=== PATIENT | female | born 1995 | race Caucasian/White ===

== ENCOUNTER 2016-06-28 11:42 | Outpatient (CLI) | payer OTHER ==
[~2016-06-28] VITALS: Ht 172.7 cm; Wt 113.2 kg
[2016-06-28 12:12] VITALS: Ht 172.7 cm; Wt 113.2 kg
--- NOTE | 2016-06-28 12:59 | RADRPT ---
PROCEDURE: US OB. CLINICAL INDICATION: Decreased motion. TECHNIQUE: Multiple sonographic images of the uterus were obtained. The images were revi ewed on a PACS workstation. COMPARISON: No prior studies are available for comparison. FINDINGS: There is a single live intrauterine gestation. heart rate is 141 beats per minute. Measurements were made in order to determine age. The results are as follows: BPD = 9.11 cm. HC = 33.14 cm. AC = 33.76 cm. FL = 7.34 cm. Estimated weight is 3245 +/- 487 grams. LMP growth percentile is 63 %. Menstrual age by ultrasound dates is 37 weeks 4 days. The estimated date of delivery is 07/15/2016. Position is cephalic and placenta is posterior grade II. There is no evidence for an abruption or pl acenta previa. IMPRESSION: 1. Single live intrauterine gestation of 37 weeks 4 days menstrual age by ultrasound dates. 2. The estimated date of delivery is 07/15/2016. RPTAT: QQ .Dg Olmos MD, Date Time Electronically viewed and signed by .Dg Olmos MD, on 06/28/2016 12:59 .R/
--- NOTE | 2016-06-28 13:56 | RADRPT ---
PROCEDURE: US biophysical profile. CLINICAL INDICATION: Decreased motion. TECHNIQUE: Multiple sonographic images of the uterus were obtained. The images were revi ewed on a PACS workstation. COMPARISON: No prior studies are available for comparison. FINDINGS: There is a single live intrauterine gestation. heart rate is 146 beats per minute. The position is cephalic. The placenta is posterior grade II with no abruption or previa. The MIKE is 14.4 cm. (Normal = 5-20 cm.) Breathing Movement: 2 Gross Body Movement: 2 Tone: 2 Qualitative Amniotic Fluid Volume: 2 TOTAL: 8 IMPRESSION: 1. The biophysical score is 8/8. RPTAT: QQ .Dg Olmos MD, MD Date Time Electronically viewed and signed by .Dg Olmos MD, on 06/28/2016 13:56 .R/
--- NOTE | 2016-06-28 15:55 | CONS ---
Date/Time of Note Date/Time of Note DATE: 06/28/16 TIME: 15:48 Consultation Date/Type/Reason Admit Date/Time June 28, 2016 OB triage consult Reason for Consultation This patient is a 21 years old 2 para 0 1 with EDC of July which makes her 37 weeks and 3 days She came to OB triage area complaining of low movement since last night On examination she is a well-developed well-nourished lady closed with her Her ear nose throat appear to be normal neck normal no neck vein distention no thyromegaly no lymph node enlargement anywhere in the body her abdomen was soft on monitoring who did not be any regular contractions Vital signs were normal blood pressure 111/57 pulse rate 90 respiration 18 temperature 97.7 Her urine test was normal On ultrasound study there was a single live intrauterine gestation heart tones 141 estimated weight was 3245 g 487 g by ultrasound she was 37 weeks and 4 days which was compatible with a EDC based on the last menstrual period. On evaluation of the feet her biophysical profile was 8/8 MIKE was 14.4 cm. Hx of Present Illness Disposition. With these normal findings patient was reassured of her condition and she was instructed to go home and return to the clinic in case of bleeding evidence of labor or any rupture membrane she understands all of those and will follow her care in her physician's office Constitutional: No chills, No diaphoresis, No disoriented, No febrile, No improved, No no complaints, No other, No poor po, No requiring IVF, No requiring O2 Eyes: No discharge, No no complaints, No other, No pain, No redness, No visual change ENT: No bleeding, No congestion, No discharge, No dysphagia, No no complaints, No other, No pain, No sore throat Respiratory: No cough, No no complaints, No other, No pain, No pleuritic pain, No shortness of breath, No sputum, No wheezing Cardiovascular: No chest pain, No edema, No lightheadedness, No no complaints, No orthopenea, No other, No palpitations, No paroxysmal nocturnal dyspnea Gastrointestinal: No blood, No constipation, No decreased appetite, No diarrhea , No flatus, No nausea, No no complaints, No other, No pain, No passing stool, No vomiting Genitourinary: No bleeding, No discharge, No dysuria, No flank pain, No hematuria, No no complaints, No other Musculoskeletal: No back pain, No bone/joint pain, No neck pain, No no complaints, No other, No restricted range of motion, No swelling Skin: No bruising, No erythema, No laceration, No no complaints, No other, No pruritis, No rash, No skin lesions Neurologic: No confusion, No dizziness, No focal-weakness, No headache, No no complaints, No other, No seizure, No syncope Endocrine: No dry skin, No no complaints, No other, No polydypsia, No polyuria , No temp intolerance Social History Smoking Status: Never smoker PARI SHAH MD Jun 28, 2016 15:55
== END 2016-06-28 14:30 | disposition home or self-care (01) ==
LOC: OBT 11:42 → L-D 11:42 → OBT 14:30
PROVIDERS: ATTEND Obstetrics & Gynecology
DX: O36.8130 Decreased fetal movements, third trimester, not applicable or unspecified (principal); Z3A.37 37 weeks gestation of pregnancy
CPT/HCPCS: 76815; 76818; Z7500; G0463

== ENCOUNTER 2016-07-23 09:33 | Inpatient (IN) | payer OTHER ==
[~2016-07-23] VITALS: Ht 172.7 cm; Wt 116.7 kg
[2016-07-23 09:54] VITALS: BP 107/55; PULSE 78; RESP 16; Ht 172.7 cm; Wt 116.7 kg
--- NOTE | 2016-07-23 10:30 | RADRPT ---
PROCEDURE: Obstetrical ultrasound. CLINICAL INDICATION: , evaluation. Pelvic pain. Post dates TECHNIQUE: Transabdominal sonographic images of the pelvis are obtained. COMPARISON: 06/28/2016 FINDINGS: Single intrauterine gestation. There is a cephalic presentation. Measurements were made in order to determine age. The results are as follows: BPD = 9.63 cm HC = 34.03 cm AC = 37.35 cm FL = 7.54 cm Heart rate = 142 beats per minute The placenta is fundal. There is no evidence for an abruption or placenta previa. Ovaries are not visualized. IMPRESSION: Single intrauterine gestation of approximately 39 weeks 4 days by ultrasound criteria. [place] estimated weight = 4031 g; 69 percentile for gestational age of 41 weeks 0 days. RPTAT: AADD .Hernán Garay MD, Date Time Electronically viewed and signed by .Hernán Garay MD, MD on 07/23/2016 10:30 .B/
--- NOTE | 2016-07-23 10:30 | RADRPT ---
PROCEDURE: OB ultrasound for biophysical profile CLINICAL INDICATION: Biophysical profile. . TECHNIQUE: Multiple sonographic images of the pelvis were obtained. Transabdominal view of the gr avid uterus are available for review. The images were reviewed on a PACS workstation. COMPARISON: 06/28/2016 FINDINGS: Single intrauterine gestation. Presentation: Cephalic. Partially visualized placenta: Fundal breathing movement = 2/2 tone = 2/2 motion = 2/2 MIKE = 2/2 MIKE = 15.8 cm heart rate: 144 beats per minute IMPRESSION: Single intrauterine gestation. Biophysical profile 11/13 RPTAT: AADD .Hernán Garay MD, MD Date Time Electronically viewed and signed by .Hernán Garay MD, on 07/23/2016 10:30 .B/
--- NOTE | 2016-07-23 11:00 | TRIAGE ---
OB Triage Datetime Report Generated by CPN: 07/23/2016 10:59 Datetime: 07/23/2016 10:43 Vaginal Exam Dilatation (cms): 0.0 Exam By: [facility] Datetime: 07/23/2016 10:10 Pattern: Normal: <= 5 Contractions in 10 Minutes Resting Tone [place]: Relaxed Contraction Comments: NO UC Heart Rate FHR Baseline Rate: 135 Monitor Mode: External US Variability: Moderate 6-25 bpm Accelerations: 15X15 Decelerations: None Category: Category I Pain Presence: None/Denies Pain Type: N/A Datetime: 07/23/2016 09:53 Assessment Type: Triage Maternal Assessment Level of Consciousness: Fully Conscious DTR's/Clonus: DTRs 2+; No Clonus Headache: Denies Blurred Vision: No Respiratory Effort: Unlabored; Regular Rhythm; Equal Expansion Breath Sounds, Left: Clear and Equal Breath Sounds, Right: Clear and Equal Nausea/Vomiting: Denies RUQ Epigastric Pain: Denies Lower Extremities Edema: None Degree: None Upper Extremities Edema: None Degree: None Facial Edema: None Fall Risk Assessment History of Falling: (0) No Secondary Diagnosis: (0) No Ambulatory Aid: (0) Bedrest/Nurse Assist IV Therapy: (0) No Gait: (0) Normal/Bedrest/Immobile Mental Status: (0) Oriented to Own Ability Fall Score: 0 Fall Risk Score Definition: No Risk: No action required Datetime: 07/23/2016 09:51 Time of Arrival: 07/23/2016 09:29 EGA: 41.0 Arrived By: Ambulatory Arrived From: Home Chief Complaint: PT. came to hospital with referral form for bpp and efw due to postdate Movement: Present Contractions: Denies/Absent Rupture of Membranes: Denies Vaginal Bleeding: None Vaginal Discharge: Denies Recent Sexual Intercouse: Denies Abdominal Trauma: Not Applicable Patient Complaints: None Time Provider Notified: 07/23/2016 10:48 Provider Notified: KARIE Initial Plan: u/s for bpp, efw Datetime: 06/28/2016 14:24 Stage of : OB Triage Datetime: 06/28/2016 14:19 Labor Evaluation Frequency: OCCAS Monitor Mode: External Resting Tone [place]: Relaxed Heart Rate FHR Baseline Rate: 125 Monitor Mode: External US Variability: Moderate 6-25 bpm Accelerations: 10X10 Decelerations: None Category: Category I Pain Assessment Pain Scale: 0 Pain Presence: None/Denies Pain Type: N/A Pain Goal: 3 Pain Relief Measures: Comfort Measures Datetime: 06/28/2016 13:13 Labor Evaluation Frequency: IRREG Monitor Mode: External Quality: Mild Resting Tone [place]: Relaxed Heart Rate FHR Baseline Rate: 130 Monitor Mode: External US Variability: Moderate 6-25 bpm Decelerations: None Category: Category I Pain Assessment Pain Scale: 0 Pain Presence: None/Denies Pain Type: N/A Pain Goal: 3 Pain Relief Measures: Comfort Measures Datetime: 06/28/2016 12:22 Stage of : OB Triage Datetime: 06/28/2016 12:09 Stage of : OB Triage Assessment Type: Triage EGA: 37.3 Maternal Assessment Level of Consciousness: Fully Conscious DTR's/Clonus: DTRs 2+; No Clonus Headache: Denies Blurred Vision: No Respiratory Effort: Unlabored; Regular Rhythm; Equal Expansion Breath Sounds, Left: Clear and Equal Breath Sounds, Right: Clear and Equal Nausea/Vomiting: Denies RUQ Epigastric Pain: Denies Lower Extremities Edema: None Degree: None Upper Extremities Edema: None Degree: None Facial Edema: None Temperature Route: Axillary Fall Risk Assessment History of Falling: (0) No Secondary Diagnosis: (0) No Ambulatory Aid: (0) Bedrest/Nurse Assist IV Therapy: (0) No Gait: (0) Normal/Bedrest/Immobile Mental Status: (0) Oriented to Own Ability Fall Score: 0 Fall Risk Score Definition: No Risk: No action required Labor Evaluation Frequency: 0 Monitor Mode: External Pattern: Normal: <= 5 Contractions in 10 Minutes Resting Tone [place]: Relaxed Heart Rate FHR Baseline Rate: 145 Monitor Mode: External US Variability: Moderate 6-25 bpm Decelerations: None Category: Category II Pain Assessment Pain Scale: 0 Pain Presence: None/Denies Pain Type: N/A Datetime: 06/28/2016 12:08 Time of Arrival: 06/28/2016 11:40 Arrived By: Ambulatory Arrived From: Home Chief Complaint: DECREASED FM, DENIES BLEEDING, LEAKING OR UC'S Movement: Decreased Contractions: Denies/Absent Rupture of Membranes: Denies Vaginal Bleeding: None Vaginal Discharge: Denies Recent Sexual Intercouse: Yes Abdominal Trauma: Not Applicable Patient Complaints: None Time Provider Notified: 06/28/2016 12:22 Provider Notified: KARIE Initial Plan: MONITOR, BPP/MIKE, EFW
[2016-07-23] MEDS ORDERED: PRENAT PO (11:50)
[2016-07-23 11:59] LABS: ADD SCAN DIFF NO
[2016-07-23] MEDS ORDERED: CARBOPROST 250 MCG INJ IM PRN (12:00)
[2016-07-23] MEDS ORDERED: LACTATED RINGER'S 1,000 ML IV PRN (12:00)
[2016-07-23] MEDS ORDERED: ACETAMINOPHEN/CODEINE #3 TAB PO PRN (12:00)
[2016-07-23] MEDS ORDERED: OXYTOCIN 30 UNITS/LR 500 ML IV SCH ×2 (12:00)
[2016-07-23] MEDS ORDERED: IBUPROFEN 600 MG TAB PO PRN (12:00)
[2016-07-23] MEDS ORDERED: DINOPROSTONE 10 MG VAG SUPP VAG ONE (12:00)
[2016-07-23] MEDS ORDERED: MISOPROSTOL 200 MCG TAB PR PRN (12:00)
[2016-07-23] MEDS ORDERED: OXYTOCIN 30 UNITS/LR 500 ML IV PRN (12:00)
[2016-07-23] MEDS ORDERED: METHYLERGONOVINE 0.2 MG INJ IM PRN (12:00)
[2016-07-23] MEDS ORDERED: BUTORPHANOL 2 MG INJ IV PRN (12:00)
[2016-07-23] MEDS ORDERED: LIDOCAINE 1% (MPF) 30 ML INJ INJ PRN (12:00)
[2016-07-23 12:04] LABS: BASOPHILS % 0.4 % (0.0-2.0); EOSINOPHILS # 0.1 10^3/ul (0.0-0.5); EOSINOPHILS % 1.2 % (0.0-7.0); HEMATOCRIT 33.7 % (37.0-47.0); HEMOGLOBIN 10.7 g/dl (12.0-16.0); LYMPHOCYTES # 2.4 10^3/ul (0.8-2.9); LYMPHOCYTES % 25.2 % (18.0-55.0); MEAN CORPUSCULAR HGB CONC 31.8 g/dl (32.0-37.0); MEAN CORPUSCULAR VOLUME 81.8 fl (72.0-104.0); MEAN PLATELET VOLUME 9.9 fl (7.4-10.4); MONOCYTE # 0.7 10^3/ul (0.3-0.9); MONOCYTES % 7.6 % (0.0-13.0); NEUTROPHIL # 6.2 10^3/ul (1.6-7.5); PLATELET COUNT 297 10^3/UL (140-415); RED BLOOD COUNT 4.12 10^6/ul (4.20-5.40); RED CELL DISTRIBUTION WIDTH 14.6 % (11.5-14.5); WHITE BLOOD COUNT 9.5 10^3/ul (4.8-10.8)
[2016-07-23] MEDS: LACTATED RINGER'S 1,000 ML IV SCH ×2 (12:10→17:54)
[2016-07-23 12:13] LABS: INR 1.17; PT RATIO 1.2
[2016-07-24] VITALS (9 sets, daily range): BP systolic 100–125; BP diastolic 54–70; PULSE 51–80; RESP 17–20
[2016-07-24] MEDS ORDERED: DINOPROSTONE 10 MG VAG SUPP VAG ONE (00:30)
[2016-07-24] MEDS: LACTATED RINGER'S 1,000 ML IV SCH ×2 (03:25→12:02)
[2016-07-24] MEDS ORDERED: MULTIVIT/MIN/FOLATE/IRON/PREN TAB PO SCH (09:00)
[2016-07-24] MEDS ORDERED: ONDANSETRON 4 MG INJ IV ONE (15:00)
[2016-07-24] MEDS ORDERED: LACTATED RINGER'S 1,000 ML IV ONE (15:00)
[2016-07-24] MEDS ORDERED: CITRIC ACID/NA CITRATE 30 ML CUP PO ONE (15:00)
[2016-07-24] MEDS ORDERED: OXYTOCIN 30 UNITS/LR 500 ML IV SCH (15:30)
[2016-07-24] MEDS ORDERED: CEFAZOLIN 2 GM/50 ML (PMX) 50 ML IV SCH (15:30)
[2016-07-24] MEDS ORDERED: OXYTOCIN 30 UNITS/LR 500 ML IV PRN ×2 (15:30→18:30)
[2016-07-24] MEDS ORDERED: METHYLERGONOVINE 0.2 MG INJ IM PRN ×2 (15:30→18:30)
[2016-07-24] MEDS ORDERED: CARBOPROST 250 MCG INJ IM PRN ×2 (15:30→18:30)
[2016-07-24] MEDS ORDERED: MISOPROSTOL 200 MCG TAB PR PRN ×2 (15:30→18:30)
[2016-07-24] MEDS ORDERED: METOCLOPRAMIDE 10 MG INJ ONE (15:35)
[2016-07-24] MEDS ORDERED: FENTAnyl 50 MCG/ML VIAL ONE (15:35)
[2016-07-24] MEDS ORDERED: morphine SULFATE/PF (10 MG/10 ML) INJ ONE (15:35)
[2016-07-24] MEDS ORDERED: EPHEDrine SULFATE 50 MG/5 ML SYG ONE (15:41)
--- NOTE | 2016-07-24 15:43 | HP ---
Date/Time of Note Date/Time of Note DATE: 07/24/16 TIME: 15:29 OB - History Hx of Present Free Text/Dictation 21 years old female 2 para 0 SAB 1 EDC of July 16, 2016 admitted to [facility] at 41 weeks gestation for induction of labor on admission pelvic examination cervix, closed 30% effacement, vertex at - 2 station two Cervidil insertion with 12 hours apart was placed in the vagina during the last 24 hours no cervical ahumada noted patient declined third Cervidil insertion requested delivery ,pros and cons risks and complication of the discussed with the patient and fully explained but patient would like to proceed with delivery. Estimated Due Date: Jul 16, 2016 : 2 Para: 0 Spontaneous : 1 Care: Good Care Ultrasounds: Normal mid trimester US Obstetrical Complications: None Medical Complications: None Past Family/Social History * Past Medical, Surgical, Family and Obstetric Histories reviewed from chart. Rubella: immune RPR/VDRL: Negative GBS Status: Negative HBsAG: Negative OB Admission Exam Vital Signs Vital Signs Vital Signs Date Time Temp Pulse Resp B/P Pulse Ox O2 Delivery O2 Flow Rate FiO2 07/23/16 09:54 97.5 78 16 107/55 Physical Exam HEENT: WNL Heart: Rhythm Normal Extremities: Normal Reflexes: Normal Cervical Dilatation: None Effacement: 25% Station: -2 Heart Rate: 130's Varibility: Minimum Contractions on Admission: >10 Minutes Apart Intensity: Mild Last 72 hours Lab Results CBC & BMP 07/23/16 11:40 OB Assessment/Plan Reason for admission: induction of labor Plan: Other (Failed induction patient declined further trial of labor requesting delivery) ARIN TIWARI MD Jul 24, 2016 15:41
[2016-07-24] MEDS ORDERED: PHENYLephrine (100 MCG/ML) 5ML SYG ONE (15:50)
[2016-07-24] MEDS ORDERED: DIPHENHYDRAMINE 50 MG INJ IV PRN (16:00)
[2016-07-24] MEDS ORDERED: ONDANSETRON 4 MG INJ IV PRN (16:00)
[2016-07-24] MEDS ORDERED: HYDROmorphONE 1 MG/ML SYG IV PRN ×2 (16:00)
[2016-07-24] MEDS ORDERED: NALOXONE (0.4 MG/ML) INJ IV PRN (16:00)
[2016-07-24] MEDS ORDERED: PROCHLORPERAZINE 10 MG INJ IV PRN (16:00)
[2016-07-24] MEDS ORDERED: OXYTOCIN 30 UNITS/LR 500 ML IV ONE (16:17)
--- NOTE | 2016-07-24 17:25 | OPR ---
DATE OF OPERATION: 07/24/2016 PREOPERATIVE DIAGNOSIS: Intrauterine at 41 weeks' gestation, failed induction. The patie nt declined further trial of labor with continuation of induction, requesting delivery. POSTOPERATIVE DIAGNOSIS: Intrauterine at 41 weeks' gestation, failed induction. The dayana ent declined further trial of labor with continuation of induction, requesting delivery. PROCEDURE PERFORMED: Primary transverse low cervical section. SURGEON: Arin Tiwari MD SWISS TYPE SCREW MACHINE OPERATOR: Jessica Sears MD ANESTHESIA: Spinal. ANESTHESIOLOGIST: Alyssa Dill MD FINDINGS: Live baby girl with 8 and 9. Baby weighed 4300 grams. DETAILS OF THE PROCEDURE: Under satisfactory spinal anesthesia, the patient was prepped and draped and placed in supine position, tilted to the left. Pfannenstiel incision was made, carried through the subcutaneous tissue. Bleeders brought under control with electrocautery. Fascia incised to the length of the incision. Rectus muscle divided in midline. Peritoneum exposed, entered through a t ransverse incision. Exploration of abdomen: Gravid uterus at term, normal-appearing tubes and ovar ies. Bladder flap was developed. Transverse incision was made in the lower segment of the uterus. Amniotic sac ruptured. Meconium- stained thick pea soup color noted. Nasal oropharyngeal suction was performed and baby immediately handed to the team for immediate attention. The patient received 20 units of Pitocin. Placenta delivered manually intact. Uterine cavity cleaned with wet sponge and drainage established. Uterus closed in 2 layers using Monocryl #1 in continuous fashion . Peritoneal cavity irrigated with sterile water. Sponge, needle and instrument reported to be correc t. Abdominal peritoneum closed with 2-0 chromic catgut continuously. Rectus muscle approximated wi th 3 interrupted 2-0 chromic catgut. Fascia closed with #1 PDS in a continuous fashion. Subcutaneo us tissue approximated with 2-0 chromic catgut. The skin closed with huan. Estimated blood loss 600 mL. Urine bag contained 250 mL of concentrated urine. The patient tolerated the procedure wel l, transferred to recovery room in a good condition. Dictated By: ARIN TIWARI MD HF/NTS Conf#: [id number] DID#: [id number]
[2016-07-24] MEDS: KETOROLAC 30 MG INJ IV PRN (18:23)
[2016-07-24] MEDS ORDERED: OXYCODONE/ACETAMINOPHEN (5/325) TAB PO PRN ×2 (18:30)
[2016-07-24] MEDS ORDERED: ACETAMINOPHEN/CODEINE #3 TAB PO PRN ×2 (18:30)
[2016-07-24] MEDS ORDERED: LANOLIN 7 GM TUBE TOP PRN (18:30)
[2016-07-24] MEDS ORDERED: CEFAZOLIN 1 GM/50 ML (PMX) 50 ML IVPB SCH (18:30)
[2016-07-24] MEDS: OXYTOCIN 30 UNITS/LR 500 ML IV SCH (20:55)
[2016-07-24] MEDS: SENNA/DOCUSATE NA (8.6MG/50MG) TAB PO SCH (20:56)
[2016-07-25] MEDS ORDERED: CEFAZOLIN 1 GM/50 ML (PMX) 50 ML IVPB SCH
[2016-07-25] MEDS: LACTATED RINGER'S 1,000 ML IV SCH ×3 (01:48→18:00)
[2016-07-25] MEDS: OXYTOCIN 30 UNITS/LR 500 ML IV SCH ×7 (01:48→19:45)
[2016-07-25 04:00] VITALS: BP 107/53; PULSE 84; RESP 20
[2016-07-25 08:00] VITALS: BP 96/58; PULSE 78; RESP 20
[2016-07-25] MEDS: SENNA/DOCUSATE NA (8.6MG/50MG) TAB PO SCH ×2 (08:59→20:55)
[2016-07-25 10:13] LABS: ADD SCAN DIFF NO
[2016-07-25 10:25] LABS: BASOPHILS % 0.2 % (0.0-2.0); EOSINOPHILS # 0.1 10^3/ul (0.0-0.5); EOSINOPHILS % 0.6 % (0.0-7.0); HEMATOCRIT 31.5 % (37.0-47.0); HEMOGLOBIN 9.9 g/dl (12.0-16.0); LYMPHOCYTES % 18.3 % (18.0-55.0); MEAN CORPUSCULAR HEMOGLOBIN 25.7 pg (29.0-33.0); MEAN CORPUSCULAR HGB CONC 31.4 g/dl (32.0-37.0); MEAN CORPUSCULAR VOLUME 81.8 fl (72.0-104.0); MONOCYTE # 0.9 10^3/ul (0.3-0.9); MONOCYTES % 8.2 % (0.0-13.0); NEUTROPHIL # 7.8 10^3/ul (1.6-7.5); NEUTROPHILS % 72.2 % (30.0-74.0); PLATELET COUNT 257 10^3/UL (140-415); RED BLOOD COUNT 3.85 10^6/ul (4.20-5.40); RED CELL DISTRIBUTION WIDTH 14.6 % (11.5-14.5); WHITE BLOOD COUNT 10.8 10^3/ul (4.8-10.8)
--- NOTE | 2016-07-25 10:29 | PN ---
Date/Time of Note Date/Time of Note DATE: 07/25/16 TIME: 10:28 OB Subjective Subjective Subjective Post day Afebrile abdomen soft lochia normal incision dry bowel sounds. Ambulation recommended extremity normal ARIN TIWARI MD Jul 25, 2016 10:29
[2016-07-25] MEDS: KETOROLAC 30 MG INJ IV PRN (14:30)
[2016-07-25 16:00] VITALS: BP 110/54; RESP 18
[2016-07-25] MEDS: IBUPROFEN 600 MG TAB PO SCH ×2 (17:59→23:31)
[2016-07-25 20:00] VITALS: BP 102/68; PULSE 85; RESP 18
[2016-07-25 23:30] VITALS: BP 93/53; PULSE 86; RESP 17
[2016-07-26 03:45] VITALS: BP 106/55; PULSE 80; RESP 18
[2016-07-26] MEDS: IBUPROFEN 600 MG TAB PO SCH ×3 (05:37→17:07)
[2016-07-26] MEDS: SENNA/DOCUSATE NA (8.6MG/50MG) TAB PO SCH ×2 (11:17→21:04)
[2016-07-26 16:00] VITALS: BP 120/60; PULSE 75; RESP 18
[2016-07-26 20:00] VITALS: BP 123/64; PULSE 92; RESP 18
[2016-07-27] MEDS: IBUPROFEN 600 MG TAB PO SCH ×3 (00:30→12:16)
[2016-07-27 04:30] VITALS: BP 101/70; PULSE 70; RESP 18
[2016-07-27 08:00] VITALS: BP 110/64; PULSE 78; RESP 17
[2016-07-27] MEDS: SENNA/DOCUSATE NA (8.6MG/50MG) TAB PO SCH (08:34)
[2016-07-27] MEDS ORDERED: DIPHTH/TET/ACEL PERTUSS (ADULT) 0.5 ML VIAL IM* ONE (09:00)
[2016-07-27] MEDS ORDERED: MEASLES,MUMPS,RUBELLA VACCINE INJ SC* ONE (09:00)
--- NOTE | 2016-07-27 12:04 | PN ---
Date/Time of Note Date/Time of Note DATE: 07/27/16 TIME: 12:03 OB Subjective Subjective Subjective Patient without complaints. Ready to go home. OB Objective Objective Objective AFVSS Gen: NAD Abd: I-C/D/I OB Assessment/Plan Other Assessment: POD3 Other plan: Discharge home today. Pelvic rest and no heavy lifting. Rx for pain meds given. F/u next week for staple removal and 4-6 weeks for care. ITALIA MARMOLEJO Jul 27, 2016 12:04
== END 2016-07-27 13:50 | disposition home or self-care (01) | DRG 766 ==
LOC: OBT 09:33 → L-D 09:34 → OBT 10:53 → L-D 07-24 15:18 → PP1 07-24 18:50
PROVIDERS: ADMIT Obstetrics & Gynecology; ATTEND Obstetrics & Gynecology
PROC: 3E0P7GC Introduction of Other Therapeutic Substance into Female Reproductive, Via Natural or Artificial Opening (ICD-10-PCS; 2016-07-24)
PROC: 3E033VJ Introduction of Other Hormone into Peripheral Vein, Percutaneous Approach (ICD-10-PCS; 2016-07-24)
PROC: 10D00Z1 Extraction of Products of Conception, Low, Open Approach (ICD-10-PCS; principal; 2016-07-24 14:45)
DX: O61.0 Failed medical induction of labor (principal); O77.0 Labor and delivery complicated by meconium in amniotic fluid; Z37.0 Single live birth; Z3A.41 41 weeks gestation of pregnancy
CPT/HCPCS: 76815; 76818; 85025; 85610; 85730; 86592; 86900; 86901; 87340; 90715; 99464; G0463; J0690; J1885; J2274; J2370; J2405; J2590; J2765; J3010; J7120